=== PATIENT | female | born 1930 | race Caucasian/White ===

== ENCOUNTER 2017-04-05 12:41 | Emergency (ER) | payer MEDICARE, OTHER ==
[2017-04-05 13:06] VITALS: BP 154/64
[2017-04-05] MEDS ORDERED: Lidocaine 2% Jelly 10 ML Urojet MUCMEM ONE (14:10)
[2017-04-05] MEDS ORDERED: cefTRIAXone 1 GM, Lidocaine 1% 2.1 ML IM ONE ×2 (14:11)
--- NOTE | 2017-04-05 14:13 | EDM.PDOC ---
ED HPI GENERAL MEDICAL PROBLEM - General Chief Complaint: Lower Extremity Injury/Pain Stated Complaint: FELL SKIN ON LEG TORN Time Seen by Provider: 04/05/17 14:04 Source of Information: Reports: Patient History Limitations: Reports: No Limitations - History of Present Illness INITIAL COMMENTS - FREE TEXT/NARRATIVE: Patient is a 86-year-old female who presents to the ED complaining of 2 skin tears to the right lower leg lateral aspect. Patient states this past she was picking apples off the ground and lost her balance. She hit the affected area on a bucket causing the injury. Wound did bleed quite a bit after the injury. This was controlled with direct pressure. Patient states she poured an antiseptic over the wound and dressed it. She has been keeping the area clean. States today she's been developing some mild localized discomfort. Questions faint redness. No drainage noted. Denies fever or chills as well. - Related Data Allergies Allergy/AdvReac Type Severity Reaction Status Date / Time No Known Allergies Allergy Verified 04/05/17 13:07 Home Meds: Home Meds Aspirin [Halfprin] 81 mg PO DAILY 04/05/17 [History] Calcium Carbonate [Calcium] 600 mg PO DAILY 04/05/17 [History] Cephalexin [Keflex] 500 mg PO TID #15 capsule 04/05/17 [Rx] Cholecalciferol (Vitamin D3) [Vitamin D3] 1,000 units PO DAILY 04/05/17 [History ] Hydrochlorothiazide 25 mg PO DAILY 04/05/17 [History] Levothyroxine [Synthroid] 50 mcg PO DAILY 04/05/17 [History] Lutein 20 mg PO DAILY 04/05/17 [History] Lutein/Minerals/Vit A,C & E [Ocuvite] 1 tab PO DAILY 04/05/17 [History] Naproxen 1 tab PO DAILY 04/05/17 [History] Non-Formulary Medication [NF Drug] 1 each PO BEDTIME 04/05/17 [History] Non-Formulary Medication [NF Drug] 3 tab PO DAILY 04/05/17 [History] amLODIPine [Norvasc] 10 mg PO DAILY 04/05/17 [History] cycloSPORINE [Restasis] 1 drop EYEBOTH DAILY 04/05/17 [History] Past Medical History HEENT History: Reports: Cataract Cardiovascular History: Reports: Hypertension Endocrine/Metabolic History: Reports: Hypothyroidism Oncologic (Cancer) History: Reports: Other (See Below) Other Oncologic History: skin cancer - Past Surgical History HEENT Surgical History: Reports: Cataract Surgery Social & Family History - Family History Family Medical History: Noncontributory - Tobacco Use Smoking Status *Q: Former Smoker Used Tobacco, but Quit: Yes Month Tobacco Last Used: 60 years ago - Recreational Drug Use Recreational Drug Use: No Review of Systems - Review of Systems Review Of Systems: ROS reveals no pertinent complaints other than HPI. ED EXAM, GENERAL - Physical Exam Exam: See Below Exam Limited By: No Limitations General Appearance: Alert, WD/WN, No Apparent Distress Ears: Hearing Grossly Normal Respiratory/Chest: No Respiratory Distress, No Accessory Muscle Use Cardiovascular: Normal Peripheral Pulses Peripheral Pulses: 2+: Posterior Tibial (R), Dorsalis Pedis (R) Extremities: Other (Right lateral lower le large skin tears present to the right lateral leg. No bleeding present. No drainage present. No increased warmth noted.. Minimal redness to the inferior border.) Neurological: Alert, Oriented, CN II-XII Intact, Normal Cognition, Normal Gait, No Motor/Sensory Deficits Psychiatric: Normal Affect, Normal Mood Skin Exam: Warm, Dry Course - Vital Signs Last Recorded V/S: Last Vital Signs Temp 97.8 F 04/05/17 13:04 Pulse 79 04/05/17 13:04 Resp 16 04/05/17 13:04 BP 154/64 H 04/05/17 13:04 Pulse Ox 97 04/05/17 13:04 - Orders/Labs/Meds Orders: Active Orders 24 hr Category Date Time Status Vaccines to be Administered [RC] PER UNIT ROUTINE Care 04/05/17 14:17 Active Meds: Medications Discontinued Medications Generic Name Dose Route Start Last Admin Trade Name Freq PRN Reason Stop Dose Admin Ceftriaxone Sodium 1 gm/ 0 gm 04/05/17 14:11 04/05/17 14:30 Lidocaine HCl 2.1 ml IM 04/05/17 14:12 1 inj ONETIME ONE Administration Diphtheria/Tetanus/Acell Pertussis 0.5 ml 04/05/17 14:16 04/05/17 14:31 Adacel IM 04/05/17 14:17 0.5 ml .ONCE ONE Administration Lidocaine HCl 10 ml 04/05/17 14:10 04/05/17 14:29 Xylocaine 2% Jelly MUCMEM 04/05/17 14:11 10 ml ONETIME ONE Administration Mupirocin 1 gm 04/05/17 15:01 04/05/17 15:18 Bactroban Oint TOP 04/05/17 15:02 22 gram ONETIME ONE Administration - Re-Assessments/Exams Free Text/Narrative Re-Assessment/Exam: Patient has 2 fairly large skin tears to the right lateral aspect of the lower leg. This is sensitive to touch. Thus will anesthetize the area with topical lidocaine. In addition I question early onset of infection present. Thus I have ordered Rocephin 1 g IM. Tetanus status is not up-to-date this is been ordered as well. Once the site anesthetized will cleanse the site very well and get closer look at how deep these injuries are. Site was anesthetize and nursing staff was able to cleanse it with copious amounts of sterile water. I was unable to lift the flaps to evaluate the depth of the injury. Mupirocin was applied to the affected areas with nonadherent dressing applied. Will discharge patient home with instructions as documented. Departure - Departure Time of Disposition: 15:17 Disposition: Home, Self-Care 01 Condition: Good Clinical Impression: Skin tear - Discharge Information Prescriptions: Cephalexin [Keflex] 500 mg PO TID #15 capsule Instructions: [facility] Care, Adult, [id number] Referrals: Oly Ramirez MD [Primary Care Provider] - Forms: ED Department Discharge Additional Instructions: Will have you take Keflex 3 times a day for 5 days. Cleanse site twice daily with soap and water, pat dry, reapply mupirocin, and nonadherent dressing. Keep area clean and dry. Do not soak wound. Follow-up with PCP in next 3-5 days to ensure wound is healing appropriately. Return to ED as needed for any new or worsening symptoms. - My Orders Last 24 Hours: My Active Orders 04/05/17 14:17 Vaccines to be Administered [RC] PER UNIT ROUTINE - Assessment/Plan Last 24 Hours: My Active Orders 04/05/17 14:17 Vaccines to be Administered [RC] PER UNIT ROUTINE
[2017-04-05] MEDS ORDERED: Diphtheria,Pertussis(Acell),Tetanus Vaccine 0.5 ML SDV IM ONE (14:16)
[2017-04-05] MEDS ORDERED: Mupirocin Oint 22 GM Tube TOP ONE (15:01)
== END 2017-04-05 15:32 | disposition home or self-care (01) ==
LOC: JD.ED 12:41
DX: S81.811A Laceration without foreign body, right lower leg, initial encounter (principal); I10 Essential (primary) hypertension; E03.9 Hypothyroidism, unspecified; Z85.828 Personal history of other malignant neoplasm of skin; Z98.49 Cataract extraction status, unspecified eye; Z87.891 Personal history of nicotine dependence; Z79.899 Other long term (current) drug therapy; Z79.82 Long term (current) use of aspirin; W01.198A Fall on same level from slipping, tripping and stumbling with subsequent striking against other object, initial encounter; Z23 Encounter for immunization
CPT/HCPCS: 90471; 90715; 96372; 99283; A9270; J0696